=== PATIENT | male | born 1995 | race Asian ===

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

== ENCOUNTER 2017-01-19 14:57 | Emergency (ER) | payer SELFPAY ==
[2017-01-19 15:04] VITALS: RESP 16; TEMP 98.1
--- NOTE | 2017-01-19 15:36 | EDPHY ---
H & P Stated Complaint: resp Time Seen by Provider: 01/19/17 15:22 HPI/ROS: CHIEF COMPLAINT: Cough, URI symptoms x3 weeks HISTORY OF PRESENT ILLNESS: 21-year-old immunocompetent male no history of chronic pulmonary disease, daily smoker, complaining of 3 weeks of productive cough, nasal congestion, sore throat. No fever or chills. No chest pain. No abdominal pain. No rash. No nuchal rigidity. No adenopathy. REVIEW OF SYSTEMS: A ten point review of systems was performed and is negative with the exception of the items mentioned in the HPI PAST MEDICAL & SURGICAL HISTORY: No pertinent medical or surgical history SOCIAL HISTORY: Daily cigarette smoker PHYSICAL EXAM (Prior to examination, patient consented to physical exam, hands were washed and my usual and customary physical exam procedures followed) 1) GENERAL: Well-developed, well-nourished, alert and oriented. Appears to be in no acute distress. Speaking full sentences, laughing, interacting with his friends, appears well 2) HEAD: Normocephalic, atraumatic 3) HEENT: Pupils equal, round, reactive to light bilaterally. Sclera anicteric. Nasopharynx, oropharynx, clear, no tonsillar enlargement or exudate. There is irritation to the posterior oropharynx.. Ears bilaterally with normal tympanic membranes. 4) NECK: Full range of motion, no meningeal signs. 5) LUNGS: Clear auscultation bilaterally, no wheezes, no rhonchi, no retractions. 6) HEART: Regular rate and rhythm, no murmur, no heave, no gallop. 7) ABDOMEN: No guarding, no rebound, no focal tenderness, 8) MUSCULOSKELETAL: Moving all extremities, no focal areas of tenderness, no obvious trauma. No peripheral edema or discoloration. 9) BACK: no visual or palpable abnormality. 10) SKIN: No rash, no petechiae. DIFFERENTIAL DIAGNOSIS: in no particular include but limited to bronchitis, pneumonia, pulmonary embolus - Personal History Current Tetanus Diphtheria and Acellular Pertussis (TDAP): Yes - Medical/Surgical History Hx Asthma: No Hx Chronic Respiratory Disease: No Hx Diabetes: No Hx Cardiac Disease: No Hx Renal Disease: No Hx Cirrhosis: No Hx Alcoholism: No Hx HIV/AIDS: No Hx Splenectomy or Spleen Trauma: No Other PMH: No significant history reported - Social History Smoking Status: Current some day smoker Constitutional: Initial Vital Signs Temperature (C) 36.7 C 01/19/17 15:02 Heart Rate 81 01/19/17 15:02 Respiratory Rate 16 01/19/17 15:02 Blood Pressure 113/55 L 01/19/17 15:02 O2 Sat (%) 98 01/19/17 15:02 O2 Delivery Mode Room Air Allergies/Adverse Reactions: No Known Allergies Allergy (Unverified 05/11/16 05:01) Home Medications: Medication Instructions Recorded Oseltamivir Phosphate [Tamiflu] 75 mg PO BID #10 cap 05/20/16 AZITHROMYCIN [Z-PACK] 500 mg PO DAILY #1 packet 01/19/17 Albuterol [Proventil Inhaler HFA 1 - 2 puffs IH Q4PRN PRN #1 mdi 01/19/17 (*)] Benzonatate [Tessalon Pearles (RX)] 200 mg PO TID PRN #15 cap 01/19/17 Medical Decision Making ED Course/Re-evaluation: This patient appears well, lungs are clear bilaterally. I do not think that chest imaging indicated. Doubt pneumothorax. Doubt PE. Given the longevity of his symptoms, 3 weeks of productive cough, I do think a trial of antibiotics is indicated as well as albuterol and antitussive. Given usual and customary URI precautions instructions. He feels comfortable being discharged. Care of patient under supervision of secondary supervising physician Dr Bashir . Departure - Departure Disposition: Home, Routine, Self-Care Clinical Impression: Cough Condition: Good Instructions: Cold Symptoms (ED) Additional Instructions: Return to the emergency department immediately for change in breathing habits, change in voice, change in swallowing habits, change in mental status, or any other symptoms that concern you. Referrals: [facility] [Other] - 5-7 days, call for appt. Prescriptions: Albuterol [Proventil Inhaler HFA (*)] 1 - 2 puffs IH Q4PRN PRN #1 mdi PRN Reason: Cough, Moderate AZITHROMYCIN [Z-PACK] 500 mg PO DAILY #1 packet Benzonatate [Tessalon Pearles (RX)] 200 mg PO TID PRN #15 cap PRN Reason: Cough, Moderate
[2017-01-19 16:47] VITALS: BP 95/62; PULSE 79; O2SAT 99
== END 2017-01-19 16:47 | disposition home or self-care (01) ==
DX: R05 Cough (principal); F17.210 Nicotine dependence, cigarettes, uncomplicated

== ENCOUNTER 2017-02-04 03:09 | Emergency (ER) | payer SELFPAY ==
--- NOTE | 2017-02-04 03:12 | EDPHY ---
H & P HPI/ROS: HPI CHIEF COMPLAINT: Alcohol Intoxication HISTORY OF PRESENT ILLNESS: Patient is a 21-year-old male, presents emergency room by EMS [facility]. Patient states he was partying this evening drinking large amount of liquor. He was at the [facility], and he fell. He had head strike. He denies any pain anywhere. Denies chest pain, shortness of breath, headache, neck pain. Denies vomiting. Past Medical History: Alcohol abuse Past Surgical History: No recent surgery Social History: Homeless, history of alcohol use Family History: Noncontributory ROS REVIEW OF SYSTEMS: A comprehensive 10 point review of systems is otherwise negative aside from elements mentioned in the history of present illness. Exam Constitutional Intoxicated, triage nursing summary reviewed, vital signs reviewed, Sleepy, smells of alcohol Eyes normal conjunctivae and sclera, horizontal beating nystagmus consistent acute alcohol intoxication, otherwise pupils equal and react to light HENT normal inspection, atraumatic, moist mucus membranes, no epistaxis, neck supple/ no meningismus, no raccoon eyes. Respiratory clear to auscultation bilaterally, normal breath sounds, no respiratory distress, no wheezing. Cardiovascular rate normal, regular rhythm, no murmur, no edema, distal pulses normal. Gastrointestinal soft, non-tender, no rebound, no guarding, normal bowel sounds, no distension, no pulsatile mass. Genitourinary no CVA tenderness. Musculoskeletal no midline vertebral tenderness, full range of motion, no calf swelling, no tenderness of extremities, no meningismus, good pulses, neurovascularly intact. Skin pink, warm, & dry, no rash, skin atraumatic. Neurologic sleepy, intoxicated with alcohol,, alert and oriented x 3, AAOx3, moves all 4 extremities equally, motor intact, sensory intact, CN II-XII intact , , normal vision, normal speech. Psychiatric normal mood/affect. Heme/Lymph/Immune no lymphadenopathy. Differential Diagnosis: Includes but is not limited to in a particular order acute alcohol intoxication, alcohol abuse, dehydration, electrolyte abnormality , nausea vomiting from acute alcohol intoxication Medical Decision Making: Plan for this patient his breath alcohol was 150 at the [facility]. Re-evaluation: 0345: Patient here in emergency room as no evidence of trauma on exam. Patient has been up ambulating out of the bed. Walking. Steady gait. He is ready to go back to the [facility]. He has not any vomiting here. His mental status has been normal except for intoxicated with alcohol. Will allow him to go back to the [facility]. No signs of trauma on head exam. Source: Patient - Medical/Surgical History Hx Asthma: No Hx Chronic Respiratory Disease: No Hx Diabetes: No Hx Cardiac Disease: No Hx Renal Disease: No Hx Cirrhosis: No Hx Alcoholism: No Hx HIV/AIDS: No Hx Splenectomy or Spleen Trauma: No Other PMH: No significant history reported - Social History Smoking Status: Current some day smoker Constitutional: Initial Vital Signs Temperature (C) 36.6 C 02/04/17 03:15 Heart Rate 66 02/04/17 03:15 Respiratory Rate 16 02/04/17 03:15 Blood Pressure 121/74 H 02/04/17 03:15 O2 Sat (%) 96 02/04/17 03:15 O2 Delivery Mode Room Air Allergies/Adverse Reactions: No Known Allergies Allergy (Unverified 05/11/16 05:01) Home Medications: Medication Instructions Recorded NK [No Known Home Meds] 02/04/17 Departure - Departure Disposition: Home, Routine, Self-Care Clinical Impression: Alcoholic intoxication Qualifiers: Complication of substance-induced condition: uncomplicated Qualified Code(s): F10.920 - Alcohol use, unspecified with intoxication, uncomplicated Condition: Good Instructions: Alcohol Intoxication (ED), Abuse of Alcohol (ED) Referrals: Patient,NotPresent [Unknown] - As per Instructions
[2017-02-04 03:17] VITALS: PULSE 66; RESP 16; TEMP 97.9; O2SAT 96
[2017-02-04 04:02] VITALS: BP 111/74
== END 2017-02-04 04:01 | disposition home or self-care (01) ==
LOC: EDUNIT#
DX: F10.920 Alcohol use, unspecified with intoxication, uncomplicated (principal); F17.200 Nicotine dependence, unspecified, uncomplicated

== ENCOUNTER 2017-02-22 11:33 | Emergency (ER) | payer OTHER, MEDICAID ==
[2017-02-22 11:52] VITALS: RESP 20
[2017-02-22] MEDS ORDERED: IBUPROFEN 600 MG TAB PO ONE (12:08)
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
[2017-02-22 14:03] VITALS: BP 132/78; PULSE 67; TEMP 98.1; O2SAT 98
== END 2017-02-22 14:03 | disposition home or self-care (01) ==
DX: S60.221A Contusion of right hand, initial encounter (principal); S63.91XA Sprain of unspecified part of right wrist and hand, initial encounter; S30.0XXA Contusion of lower back and pelvis, initial encounter; F17.200 Nicotine dependence, unspecified, uncomplicated; V49.59XA Passenger injured in collision with other motor vehicles in traffic accident, initial encounter; Y92.410 Unspecified street and highway as the place of occurrence of the external cause